=== PATIENT | male | born 1985 | race Caucasian/White ===

== ENCOUNTER 2023-05-08 04:05 | Emergency (ER) | payer SELFPAY ==
[~2023-05-08] VITALS: Ht 185.4 cm; Wt 78.0 kg
[2023-05-08 04:07] VITALS: BP 138/90; PULSE 64; RESP 18; TEMP 97.9; O2SAT 100
== END 2023-05-08 04:35 | disposition left against medical advice (07) ==
LOC: ER 04:05
DX: F10.129 Alcohol abuse with intoxication, unspecified (principal); Z53.21 Procedure and treatment not carried out due to patient leaving prior to being seen by health care provider